=== PATIENT | male | born 1970 ===

== ENCOUNTER 2024-10-23 22:11 | Observation (INO) | payer OTHER, MEDICAID ==
[~2024-10-23] VITALS: Ht 182.9 cm; Wt 114.0 kg
[2024-10-23 23:18] LABS: BASOPHILS ABSOLUTE AUTO 0.06 K/mm3 (0.00-0.23); BASOPHILS PERCENT AUTO 0 % (0-2); EOSINOPHILS ABSOLUTE AUTO 0.01 K/mm3 (0.00-0.68); EOSINOPHILS PERCENT AUTO 0 % (0-6); Hematocrit 47.8 % (37.0-53.0); Hemoglobin 16.6 g/dL (13.5-17.5); IMMATURE GRAN PERCENT AUTO 1 % (0-1); LYMPHOCYTES ABSOLUTE AUTO 1.79 K/mm3 (0.84-5.20); LYMPHOCYTES PERCENT AUTO 9 % (21-46); MONOCYTES ABSOLUTE AUTO 1.84 K/mm3 (0.16-1.47); MONOCYTES PERCENT AUTO 9 % (4-13); Mean Corpuscular HGB 30.3 pg (26.0-34.0); Mean Corpuscular HGB Conc 34.7 g/dL (31.5-36.5); Mean Corpuscular Volume 87 fL (80-100); Mean Platelet Volume 9.9 fL (9.1-12.4); NEUTROPHILS ABSOLUTE AUTO 15.75 K/mm3 (1.96-9.15); NEUTROPHILS PERCENT AUTO 81 % (41-73); Platelet Count 233 K/mm3 (150-400); RDW Coefficient Variation 12.1 % (11.7-14.2); RDW Standard Deviation 39.2 fL (35.1-46.3); Red Blood Cell Count 5.48 M/mm3 (4.30-5.90); White Blood Cell Count 19.55 K/mm3 (4.00-11.30)
[2024-10-24] LABS: Alanine Aminotransfer (ALT/SGP 127 U/L (12-78); Albumin, Blood 4.4 g/dL (3.4-5.0); Alk Phos 96 U/L (50-136); Anion Gap 11 mmol/L (3-11); Aspartate Aminotrans (AST/SGOT 60 U/L (12-37); Bilirubin, Total 1.3 mg/dL (0.1-1.0); Blood Urea Nitrogen 22 mg/dL (8-24); Bun/Creatinine Ratio 17.7 (12.0-20.0); CO2, Blood 23 mmol/L (21-32); Calcium, Blood 9.3 mg/dL (8.5-10.1); Chloride, Blood 110 mmol/L (98-108); Creatinine, Blood 1.24 mg/dL (0.60-1.20); Globulin, Blood 4.2 g/dL (2.2-4.0); Glomerular Filtration Rate 70 (60-); Glucose, Blood 111 mg/dL (70-99); Potassium, Blood 3.9 mmol/L (3.5-5.5); Sodium, Blood 140 mmol/L (136-145); Total Protein, Blood 8.6 g/dL (6.4-8.2)
[2024-10-24 00:51] LABS: Ethanol (Alcohol), Blood, Med <3 mg/dL
[2024-10-24] MEDS ORDERED: Ondansetron HCl 2 MG / ML 2ML Vial IV PRN (02:35)
[2024-10-24] MEDS ORDERED: FentaNYL Citrate 50 MCG/ML 2 ML Injection IV PRN (02:35)
[2024-10-24] MEDS ORDERED: FLU VACC TS2024-25(6MOS UP)/PF 45 MCG/0.5 ML SYRINGE IM ONE (02:35)
[2024-10-24] MEDS ORDERED: HYDROcodone 5-APAP 325 TAB PO PRN (02:35)
[2024-10-24 04:58] LABS: U Amphetamine Screen Not Detected; U Barbituate Screen Not Detected; U Benzodiazapine Screen Not Detected; U Buprenorphine Screen Not Detected; U Cannabinoids Screen Not Detected; U Cocaine Screen Not Detected; U Methadone Screen Not Detected; U Methamphetamine Screen Not Detected; U Opiates Screen DETECTED; U Phencyclidine Screen Not Detected
[2024-10-24 04:59] LABS: U Oxycodone Screen Not Detected
[2024-10-24] MEDS ORDERED: Enoxaparin 40 MG/0.4 ML SYR SC SCH (09:00)
[2024-10-24] MEDS ORDERED: Docusate Sodium 100 MG Cap PO SCH (09:00)
--- NOTE | 2024-10-24 09:15 | NUR ---
PATIENT ARRIVED TO MEDICAL FLOOR VIA GURNEY @ 0900. SLEEPING AND DIFFICULT TO ROUSE. COMPLETE ASSIST TO SLIDE TO ROOM BED; PT UNABLE TO ASSIST. WHEN HE DOES ROUSE, VERY DIFFICULT TO ORIENT. NOT ANSWERING QUESTIONS DIRECTLY. WITNESSED BY THIS RN AND PHLEBOTOMY TO HAVE EPISODE OF EYES ROLLING BACK IN HEAD AND EYELIDS FLUTTERING OPEN AND CLOSED. LIMBS SPASMING AND ALSO JUMPING UP OUT OF BED, AND LAYING DOWN AT THE OTHER END.
[2024-10-24 09:22] VITALS: BP 157/99
[2024-10-24 09:26] LABS: BASOPHILS ABSOLUTE AUTO 0.03 K/mm3 (0.00-0.23); BASOPHILS PERCENT AUTO 0 % (0-2); EOSINOPHILS ABSOLUTE AUTO 0.03 K/mm3 (0.00-0.68); EOSINOPHILS PERCENT AUTO 0 % (0-6); Hematocrit 46.3 % (37.0-53.0); Hemoglobin 15.8 g/dL (13.5-17.5); IMMATURE GRAN ABSOLUTE AUTO 0.04 K/mm3 (0.00-0.10); IMMATURE GRAN PERCENT AUTO 0 % (0-1); LYMPHOCYTES ABSOLUTE AUTO 2.56 K/mm3 (0.84-5.20); LYMPHOCYTES PERCENT AUTO 26 % (21-46); MONOCYTES ABSOLUTE AUTO 1.11 K/mm3 (0.16-1.47); MONOCYTES PERCENT AUTO 11 % (4-13); Mean Corpuscular HGB 30.3 pg (26.0-34.0); Mean Corpuscular HGB Conc 34.1 g/dL (31.5-36.5); Mean Corpuscular Volume 89 fL (80-100); Mean Platelet Volume 9.9 fL (9.1-12.4); NEUTROPHILS ABSOLUTE AUTO 6.11 K/mm3 (1.96-9.15); NEUTROPHILS PERCENT AUTO 62 % (41-73); Platelet Count 217 K/mm3 (150-400); RDW Coefficient Variation 12.2 % (11.7-14.2); Red Blood Cell Count 5.21 M/mm3 (4.30-5.90); White Blood Cell Count 9.88 K/mm3 (4.00-11.30)
[2024-10-24 09:49] LABS: Albumin, Blood 4.1 g/dL (3.4-5.0); Bilirubin, Total 2.1 mg/dL (0.1-1.0); Bun/Creatinine Ratio 17.7 (12.0-20.0); Calcium, Blood 9.3 mg/dL (8.5-10.1); Creatinine, Blood 1.3 mg/dL (0.60-1.20); Globulin, Blood 4.2 g/dL (2.2-4.0); Potassium, Blood 3.9 mmol/L (3.5-5.5); Total Protein, Blood 8.3 g/dL (6.4-8.2)
[2024-10-24 16:07] VITALS: BP 135/83
--- NOTE | 2024-10-24 16:45 | NUR ---
PATIENT WITH C/O HEADACHE AND STERNAL PAIN ACROSS BRUISED AREA OF CHEST. OFFERED PRN NORCO, APAP OR FENTANYL, ALL OF WHICH HE DECLINED.
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
[2024-10-24 19:48] VITALS: BP 124/78
[2024-10-25 03:01] VITALS: BP 127/71
--- NOTE | 2024-10-25 05:29 | NUR ---
SHIFT SUMMARY; SLEPT ALL NIGHT DECLINED PAIN MEDS. DID NOT WANT ANY THING EXTRA TO EAT.
[2024-10-25 07:30] LABS: Albumin, Blood 3.8 g/dL (3.4-5.0); Bilirubin, Total 1.3 mg/dL (0.1-1.0); Bun/Creatinine Ratio 20.6 (12.0-20.0); Calcium, Blood 8.9 mg/dL (8.5-10.1); Creatinine, Blood 1.31 mg/dL (0.60-1.20); Potassium, Blood 4.1 mmol/L (3.5-5.5); Total Protein, Blood 7.8 g/dL (6.4-8.2)
[2024-10-25 08:00] VITALS: BP 129/82
== END 2024-10-25 11:00 | disposition home or self-care (01) ==
LOC: ER 22:11 → ERHOLD 22:12 → MEDS 10-24 09:00 → ENPENDDIS 10-25 10:36 → MEDS 10-25 11:00
PROVIDERS: Emergency Medicine; Student in an Organized Health Care Education/Training Program; Surgery; ADMIT Surgery
DX: S27.892A Contusion of other specified intrathoracic organs, initial encounter (principal); R07.89 Other chest pain; V89.0XXA Person injured in unspecified motor-vehicle accident, nontraffic, initial encounter; Z88.0 Allergy status to penicillin; Z88.2 Allergy status to sulfonamides; Z90.5 Acquired absence of kidney
CPT/HCPCS: 36415; 70450; 71260; 74177; 80053; 80320; 85025; 86850; 86900; 86901; 93005; 93010; 99285-25; G0378; Q9967